=== PATIENT | male | born 2000 | race Caucasian/White ===

== ENCOUNTER 2024-12-20 08:51 | Outpatient (REF) | payer OTHER, SELFPAY ==
[2024-12-20 11:38] LABS: MANUAL DIFF FLAG NO
[2024-12-20 11:40] LABS: Hematocrit 44.1 % (42.0-52.0); Hemoglobin 14.9 g/dl (14.0-18.0); Imm Gran Abs Auto 0.01 X10*3/uL (0.00-0.03); Imm Gran Pct Auto 0.2 % (0.0-0.4); Lymphocytes Absolute Auto 1.0 X10*3/uL (1.2-4.9); Mean Corpuscular HGB Conc 33.8 g/dl (31.0-36.0); Mean Corpuscular Hemoglobin 29.0 pg (27.0-33.0); Mean Corpuscular Volume 86.0 fL (80.0-98.0); NRBC Abs Auto 0.000 X10*3/uL (0.0-0.012); NRBC Pct Auto 0.0 /100WBC (0.0-0.2); Platelet Count 334 X10*3/uL (160-400); Red Blood Count 5.13 X10*6/uL (4.60-5.80); White Blood Count 4.5 X10*3/uL (4.8-10.8)
[2024-12-20 12:03] LABS: Alanine Aminotransferase 43 U/L (0-40); Albumin Level 4.9 g/dL (3.5-5.0); Alkaline Phosphatase 65 U/L (39-117); Anion Gap 13 (12-20); Aspartate Amino Transferase 33 U/L (5-37); Blood Urea Nitrogen 12 mg/dL (9-16); Calcium 9.4 mg/dL (8.4-10.2); Carbon Dioxide 25 mmol/L (22-29); Chloride 106 mmol/L (96-108); Cholesterol 115 mg/dL (<200); Estimated Glomerular Filt Rate > 60; HDL Cholesterol 32 mg/dL (>40); Potassium 4.1 mmol/L (3.3-5.1); Sodium 140 mmol/L (135-145); Total Protein 8.0 g/dL (6.5-8.0); Triglycerides 173 mg/dL (<150)
[2024-12-20 12:10] LABS: Appearance Urine Clear; Glucose Urine UA Negative (Negative); PH 5.5 (5.0-9.0); Specific Gravity - Urine 1.020 (1.005-1.025)
[2024-12-20 12:12] LABS: Total Hemoglobin (HGBA1C) 3867.1429 umol/L
[2024-12-20 12:39] LABS: Microalbum/Creatinine Ratio Ur 3.2 ug/mg cr (<30)
== END 2024-12-20 08:52 | disposition home or self-care (01) ==
LOC: HO.WFDLDS 08:51
PROVIDERS: PCP Physician Assistant; Visit Provider Physician Assistant
DX: Z00.00 Encounter for general adult medical examination without abnormal findings (principal); M25.512 Pain in left shoulder; L40.9 Psoriasis, unspecified; R30.0 Dysuria; E66.01 Morbid (severe) obesity due to excess calories; R73.01 Impaired fasting glucose; F41.1 Generalized anxiety disorder; F41.0 Panic disorder [episodic paroxysmal anxiety]; F33.0 Major depressive disorder, recurrent, mild
CPT/HCPCS: 36415; 80053; 80061; 81003; 82043; 82570; 83036; 84443; 85025; 96127

== ENCOUNTER 2024-12-20 08:51 | Outpatient (AMB) | payer OTHER, SELFPAY ==
--- NOTE | 2024-12-20 08:56 | A.OFFPC_ITS ---
Vital Signs 12/20/24 08:58 Height 5 ft 4.17 in Weight 231 lb 4 oz BMI 39.5 BP 108/78 Blood Pressure Location Lt brachial Position Sitting Respiration 14 Pulse 72 Pulse Source Pulse Oximeter Temp 98.4 F Temp Source Oral Pulse Oximetry (%) 99 Oxygen Delivery Method Room Air Intake Visit Reasons: [employer]-annual pe/Psoriasis Intake Note: New patient visit Junior Underwriter Required: No Allergies No Known Allergies Allergy (Verified 12/20/24 09:16) Medication List - Last Reconciled 12/20/24 by Alexandrea Warren PA-C hydroxyzine HCl 25 mg PO BID PRN sertraline (Zoloft) 25 mg PO DAILY Tobacco use date assessed: 12/20/24 Dental Screening Dental Screen Date: 12/20/24 Did you have a dental visit in the last 12 months?: No Did you have a dental problem in the last 6 months where you did not have access to dental care?: No Was dental information given to patient?: Patient has dentist (has appt next month) HPI [employer]-annual pe/Psoriasis HPI Details Patient is a 24-year-old male who presents today to [facility]. He is transferring from pediatrics. He has a hx of psoriasis , anxiety and depression Derm: following with [facility] for psoriasis and is on topical management only and very responsive. Msk: he states that for years he has had left shoulder pain and states for the last 4 months he has persistent shoulder pain. He states it is worse with certain movements like heavy lift or twisting his arm in a weird way. He takes otc pain medications with slight improvement and he has tried massage therapy. He wants to see ortho. Psych: he has a longstanding hx of anxiety and depression. No SI/HI. He is getting intermittent panic attacks. He states that used to follow with a therapist as a child and did not find it that effective. Cannot recall any previous medications. He states he does not want to go to now wants to wait on it. Has a very supportive . Family history: mother had melanoma, maternal grandfather kidney cancer, maternal grandmother breast cancer [facility] Family History (Updated 12/20/24 @ 09:37 by Lynsey Scruggs CMA) Mother Diabetes Skin cancer Maternal Grandmother Breast cancer Maternal Grandfather Cancer of kidney Diabetes Paternal Grandfather Diabetes Other Anxiety Depression FHx: mental illness Substance abuse Social History Alcohol intake: never Patient Tobacco Use Status: Former Tobacco user Cigarette Packs Per Day: 0.5 Years Smoked: 5 e-Cigarette/Vaping Use: Currently Using Second Hand Smoke Exposure: Yes service: No Current occupational status: employed Current occupation: residential roofer for [employer] Current occupational exposures/hazards: No Cognitive needs: No Hearing needs: No Vision needs: No Questionnaire PHQ-9 Over the last 2 weeks, how often have you been bothered by any of the following problems? 1. Little interest or pleasure in doing things: several days 2. Feeling down, depressed, or hopeless: more than half the days 3. Trouble falling or staying asleep, or sleeping too much: nearly every day 4. Feeling tired or having little energy: more than half the days 5. Poor appetite or overeating: several days 6. Feeling bad about yourself - or that you are a failure or have let yourself or your family down: nearly every day 7. Trouble concentrating on things, such as reading the newspaper or watching television: several days 8. Moving or speaking so slowly that other people could have noticed. Or the opposite - being so fidgety or restless that you have been moving around a lot more than usual: several days 9. Thoughts that you would be better off or of hurting yourself in some way: not at all Total score: 14 Depression Screening Interpretation: Positive Depression Screening Follow-up: Existing condition, New Medication prescribed and Follow-up Visit Requested Depression Screening Done: Yes 51607 - PHQ-9 Billing: Yes Source: Developed by Drs. Fabricio Frazier, Jane Farris, Angus White and colleagues, with an educational eliezer from [employer]. Thrive Questionnaire Date Thrive assessed: 12/20/24 I am a: Patient What is your living situation today?: I have a steady place to live Within the past 12 months, did the food you bought not last and you didn't have the money to get more?: Never true Within the past 12 months, did you worry whether your food would run out before you got money to buy more?: Sometimes True Do you have trouble paying for medicines?: No Do you have trouble getting transportation to medical appointments?: No Do you have trouble paying your heating and electricity bill?: No Do you have trouble taking care of your child, family member or friend?: No Do you have trouble with day-to-day activities such as bathing, preparing meals, shopping, managing finances, etc.?: No Are you currently unemployed and looking for a job?: No Are you interested in more education?: No Please select the resources that you would like help with: None Currently or been in a relationship where the following occur: No concerns reported THRIVE Score: 1 AUDIT C Alcohol Use Questionnaire (AUDIT-C) 1. How often do you have a drink containing alcohol?: Never 3. How often do you have six or more drinks on one occasion?: Never Total Score: 0 Score Reviewed/Action Taken: Yes JANETTE-7 AMB Questionnaire JANETTE-7 Date JANETTE - 7 assessed: 12/20/24 Feeling nervous, anxious, or on edge: 3 = Nearly every day Not being able to stop or control worryin = Nearly every day Worrying too much about different things: 3 = Nearly every day Trouble relaxin = Nearly every day Being so restless that it is hard to sit still: 1 = Several days Becoming easily annoyed or irritable: 1 = Several days Feeling afraid as if something awful might happen: 3 = Nearly every day Total JANETTE-7 score (0-4 normal; 5-9 mild; 10-14 moderate; 15-21 severe): 17 Source: Developed by Drs. Fabricio Frazier, Jane Farris, Angus White and colleagues, with an educational eliezer from [employer]. JANETTE-7 Assessment Billing JANETTE-7 Assessment Tool: JANETTE-7 Assessment 46612 Physical exam (Primary Care) Vital Signs: Last Vital Signs Temp 98.4 F 12/20/24 08:58 Pulse 72 12/20/24 08:58 Resp 14 12/20/24 08:58 BP 108/78 12/20/24 08:58 Pulse Ox 99 12/20/24 08:58 Oxygen Delivery Method Room Air 12/20/24 08:58 BMI result Body Mass Index 39.5 Tobacco/Smoking Status: Tobacco use Status Tobacco use date assessed 12/20/24 12/20/24 09:02 Patient Tobacco Use Status Former Tobacco user 12/20/24 09:06 e-Cigarette/Vaping Use Currently Using 12/20/24 09:06 PHQ-9: PHQ-9 Score PHQ-9: Total score 14 12/20/24 09:06 Depression Screening Interpretation: Positive Depression Screening Follow-up: Existing condition, New Medication prescribed and Follow-up Visit Requested Thrive Assessment: Date of Thrive Assessment Date Thrive assessed 12/20/24 12/20/24 09:06 Currently or been in a relationship where the following occur: No concerns reported Const Orientation/consciousness: patient oriented x3 HENMT Ears: hearing grossly normal bilaterally Neck Thyroid: Thyroid normal Lymphatic: no lymphadenopathy noted Resp Auscultation: clear to auscultation bilaterally Cardio Rate: regular rate Rhythm: regular rhythm Heart sounds: S1 normal heart sound present and S2 normal heart sound present GI Inspection: Yes normal to inspection Palpation (GI): Soft to palpation and Other GI palpation findings present (nontender, no cva tenderness) Auscultation: normoactive bowel sounds Rectal Exam - Male: Yes deferred Skin General skin exam: no rashes or lesions noted Neuro General: patient oriented x3, gait normal and no focal motor deficits Coding Level of Care Code New Pt Level 4 (53658) Complex EM visit Add On G2211 Diagnoses Left shoulder pain M25.512 Psoriasis L40.9 Generalized anxiety disorder with panic attacks F41.1; F41.0 Mild recurrent major depression F33.0 Additional Codes JANETTE-7 Assessment Billing - JANETTE-7 Assessment Tool: JANETTE-7 Assessment 65578 ([id number]) PHQ-9 - 27195 - PHQ-9 Billing: Yes ([id number]) Assessment & Plan Assessment & Plan (1) Left shoulder pain: Code(s): M25.512 - Pain in left shoulder Category: Medical Plan: xr ordered referral to ortho (2) Psoriasis: Code(s): L40.9 - Psoriasis, unspecified Category: Medical Plan: following with [facility] (3) Generalized anxiety disorder with panic attacks: Code(s): F41.1 - Generalized anxiety disorder; F41.0 - Panic disorder [episodic paroxysmal anxiety] Category: Medical Plan: hydroxyzine prn. discussed risks and benefits and adverse effects (4) Mild recurrent major depression: Code(s): F33.0 - Major depressive disorder, recurrent, mild Category: Medical Plan: will start Zoloft. Discussed risks and benefits and effects of this medication. We will do a short term follow up. He will let me know if he changes his mind and a behavioral health risks Orders: Orders Lipid Panel Today E66.01 - Morbid (severe) obesity due to excess calories, L40.9 - Psoriasis, unspecified, M25.512 - Pain in left shoulder, Z00.00 - Encounter for general adult medical examination without abnormal findings TSH reflex Free T4 Today E66.01 - Morbid (severe) obesity due to excess calories, L40.9 - Psoriasis, unspecified, M25.512 - Pain in left shoulder, Z00.00 - Encounter for general adult medical examination without abnormal findings UA CC w/rflx Micro + Cult Today E66.01 - Morbid (severe) obesity due to excess calories, L40.9 - Psoriasis, unspecified, M25.512 - Pain in left shoulder, R30.0 - Dysuria, Z00.00 - Encounter for general adult medical examination without abnormal findings Complete Blood Count Auto Diff Today E66.01 - Morbid (severe) obesity due to excess calories, L40.9 - Psoriasis, unspecified, M25.512 - Pain in left shoulder, Z00.00 - Encounter for general adult medical examination without abnormal findings Comprehensive [facility]. Panel Fast Today E66.01 - Morbid (severe) obesity due to excess calories, L40.9 - Psoriasis, unspecified, M25.512 - Pain in left shoulder, Z00.00 - Encounter for general adult medical examination without abnormal findings Hemoglobin A1c Today E66.01 - Morbid (severe) obesity due to excess calories, L40.9 - Psoriasis, unspecified, M25.512 - Pain in left shoulder, R73.01 - Impaired fasting glucose, Z00.00 - Encounter for general adult medical examination without abnormal findings Microalbumin, Random (w Creat) Today E66.01 - Morbid (severe) obesity due to excess calories, L40.9 - Psoriasis, unspecified, M25.512 - Pain in left shou lder, Z00.00 - Encounter for general adult medical examination without abnormal findings XR shoulder LT min 2V Today M25.512 - Pain in left shoulder Referrals Orthopedics Referral M25.512 - Pain in left shoulder Medications: New hydroxyzine HCl 25 mg PO BID PRN 30 tabs 2RF anxiety sertraline (Zoloft) 25 mg PO DAILY 30 tabs 1RF
[2024-12-20 08:58] VITALS: BP 108/78; PULSE 72; RESP 14; TEMP 36.9; O2SAT 99; BMI 39.5
--- OUTSIDE RECORDS SUMMARY | 2024-12-20 10:09 | XMS_ITS | Clinical Summary ---
Author Organization [facility] Address [address] [place] [id number] Phone Care Team Providers Care Crime Lab Technician Name Role Phone Sofiya Underwood MD Primary Care Provider Unavailabl e Medications amphetamine-dextro amphetamine XR 30 MG 24 hr capsuleIndications :ADHD (attention deficit hyperactivity disorder), inattentive type Take 1 capsule (30 mg total) by mouth every morning Earliest Fill Date: 12/21/17. 30 capsule 8 Active Active Problems Problem Noted Date Diagnosed Date ADHD (attention deficit hype ractivity disorder), inattentive type 04/12/2017 Mild intermittent asthma with acute exacerbation 02/18/2016 Gastroesophageal reflux disease with esophagitis 11/10/2015 Immunizations Immunization Administration Dates Next Due DTaP 06/17/2003, 0,1998,06/23,1998 HPV Vaccine 9 Valent 03/24/2015 HPV, Quadrivalent 03/21/2014,03/12/2013 Hep A, Adult 04/12/2017 Hep B, ped/adol 1998,1998,1998 Hib (PRP-T) 06/18/1999, 9,1998,04/23 IPV 06/17/2003,199 9,1998,04/23 Influenza, injectable, quadrivalent 03/05,03/21/2014,03/12/2013,01/10,12/18/2009 Influenza, injectable, quadr ivalent, preservative free 04/12/2017,12/22/2010 MMR 04/20/2002,02/23/1999 Meningococcal Conj (Menactra) MCV4P 03/21/2014,0 12/18/2009 Pneumococcal Conjugate 03/04/2000,10/03/1999 Tdap 12/18/2009 Varicella 09/13/2007,02/23/1999 Family History Relation Name Status Comments Father Alive healthy, alcoho l abuse age: 45 Maternal Grandfather Alive ptsd di agnosed with NONPSYCHOT BRAIN SYN NOS Maternal Grandmother Alive seizure s Mother Alive hypothyroidism, melanoma 2015 - remission age: 31 diagnosed with MALIGNANT NEOPLASM NOS Other Alive Siblings: healt hy Social History Tobacco Use Types Packs/Day Years Used Date Smoking Tobacco: Never Assessed Sex and Gender Information Value Date Recorded Sex Assigned at Not on file Legal Sex Male 6:09 PM EDT Gender Identity Not on file Sexual Orientation Not on file Last Filed Vital Signs Vital Sign Reading Time Taken Comments Blood Pressure 118/68 04/12/2017 12:00 AM EST Pulse 88 02/18/2016 12:00 AM EST Temperature 36.2 C (97.2 F) 06/29/2016 12:00 AM EDT Respiratory Rate - - Oxygen Saturation 99% 02/18/2016 12:00 AM EST Inhaled Oxygen Concentration - - Weight 103 kg (227 lb 3.2 oz) 04/12/2017 12:00 A M EST Height 165.1 cm (5' 5 ) 04/12/2017 12:00 AM EST Body Mass Index 37.81 04/12/2017 12:00 AM EST Plan of Treatment Health Maintenance Due Date Last Done Comments DTaP,Tdap,and Td Vaccines (7 - Td or Tdap) 12/19/2019 12/18/2009, 06/17/2003, 06/08/1999, Additional history exists Influenza Vaccines (#1) 2024 04/12/19 18, 03/24/2015, 03/21/2014, Additional history exists COVID-19 Vaccine ( season) 2024 Hepatitis B Vaccines Completed 1998, 1998, 1998 HIB Vaccines Completed 06/18/1999, 08/02, 1998, Additional history exists Pneumococcal Vaccine Completed 03/04/2000, 10/03/19 00 MMR Vaccines Completed 04/20/2002, 02/23/1999 IPV Vaccines Completed 06/17/2003, 02/03, 1998, Additional history exists Varicella Vaccines Completed 09/13/2007, 02/23/1999 Meningococcal Vaccine Completed 03/21/2014, 010 HPV Vaccines Completed 03/24/2015, 03/04, 03/12/2013 Hepatitis A Vaccines Aged Out 04/12/2017 No long er eligible based on patient's age to complete this topic Men B Vaccine Aged Out No longer elig ible based on patient's age to complete this topic Insurance [facility] NON PCC Care Teams Crime Lab Technician Relationship Specialty Start Date End Date Sofiya Underwood MD PCP - General 09/20/19
--- OUTSIDE RECORDS SUMMARY | 2024-12-20 10:09 | XMS_ITS | Encounter Summary ---
Author Organization [facility] Address [address] [place] [id number] Phone Care Team Providers Care Director Of Neurology Name Role Phone Sofiya Underwood MD Primary Care Provider Unavailabl e Encounter Details Date Type Department Care Team (Late st Contact Info) Description 08/21/2017 Conversion [facility]counter [facility] [address] [address] Fabricio Catalan MD [address] [place] [id number] Social History Tobacco Use Types Packs/Day Years Used Date Smoking Tobacco: Never Assessed Sex and Gender Information Value Date Recorded Sex Assigned at Not on file Legal Sex Male 6:09 PM EDT Gender Identity Not on file Sexual Orientation Not on file documented as of this encounter Plan of Treatment Not on file documented as of this encounter Visit Diagnoses Not on filedocumented in this encounter Care Teams Director Of Neurology Relationship Specialty Start Date End Date Sofiya Underwood MD PCP - General 09/20/19 documented as of this encounter
== END 2024-12-20 09:30 | disposition home or self-care (01) ==
LOC: HO.HMCFM 08:52
PROVIDERS: PCP Physician Assistant; Visit Provider Physician Assistant
DX: M25.512 Pain in left shoulder (principal); L40.9 Psoriasis, unspecified; F41.1 Generalized anxiety disorder; F41.0 Panic disorder [episodic paroxysmal anxiety]; F33.0 Major depressive disorder, recurrent, mild

== ENCOUNTER 2025-02-13 10:41 | Outpatient (AMB) | payer OTHER, SELFPAY ==
--- NOTE | 2025-02-13 10:43 | A.OFFPC_ITS ---
Vital Signs 02/13/25 10:44 Height 5 ft 4.17 in Weight 230 lb BMI 39.3 BP 108/84 Blood Pressure Location Rt brachial Position Sitting Respiration 14 Pulse 76 Pulse Source Pulse Oximeter Temp 98 F Temp Source Oral Pulse Oximetry (%) 98 Oxygen Delivery Method Room Air Intake Visit Reasons: 4-6 weeks Intake Note: Follow up Burglary Investigator Required: No Allergies No Known Allergies Allergy (Verified 02/13/25 10:46) Medication List - Last Reconciled 02/13/25 by Alexandrea Warren PA-C hydroxyzine HCl 25 mg PO BID PRN sertraline (Zoloft) 25 mg PO DAILY Tobacco use date assessed: 02/13/25 Dental Screening Dental Screen Date: 12/20/24 HPI 4-6 weeks HPI Details Patient is a 24-year-old male who presents today for a follow up. He has a hx of psoriasis , anxiety and depression Derm: following with [facility] for psoriasis and is on topical management only and very responsive. Msk: he states that for years he has had left shoulder pain and states for the last 4 months he has persistent shoulder pain. He states it is worse with certain movements like heavy lift or twisting his arm in a weird way. He takes otc pain medications with slight improvement and he has tried massage therapy. He has not yet had imaging. He wants to see ortho booked 03.21. Psych: he has a longstanding hx of anxiety and depression. No SI/HI. Feeling a lot better with zoloft. Has rarely had to take hydroxyzine. GI: Had recent labs that showed mildly elevated LFTs. States that he did have the flu a couple of weeks prior to completing the labs and was eating a bit more carbs. He has been working hard on diet and weight loss. He used to weigh 280 lb earlier this year and states that with diet and exercise he has lost 50 lb. Dental: getting wisdom teeth out 03/22/25. Family history: mother had melanoma, maternal grandfather kidney cancer, maternal grandmother breast cancer PFSH Family History Mother Diabetes Skin cancer Maternal Grandmother Breast cancer Maternal Grandfather Cancer of kidney Diabetes Paternal Grandfather Diabetes Other Anxiety Depression FHx: mental illness Substance abuse Social History (Updated 11/12/25 @ 11:28 by LOREN Schwarz Housing: House Alcohol intake: never Patient Tobacco Use Status: Former Tobacco user Cigarette Packs Per Day: 0.5 Years Smoked: 5 e-Cigarette/Vaping Use: Currently Using Second Hand Smoke Exposure: Yes Use of substances other than those prescribed or required for medical reasons: No service: No Current occupational status: employed Current occupation: residential interior designer for [employer] Current occupational exposures/hazards: No Cognitive needs: No Hearing needs: No Vision needs: No Questionnaire Thrive Questionnaire Date Thrive assessed: 12/20/24 I am a: Patient What is your living situation today?: I have a steady place to live Within the past 12 months, did the food you bought not last and you didn't have the money to get more?: Never true Within the past 12 months, did you worry whether your food would run out before you got money to buy more?: Sometimes True Do you have trouble paying for medicines?: No Do you have trouble getting transportation to medical appointments?: No Do you have trouble paying your heating and electricity bill?: No Do you have trouble taking care of your child, family member or friend?: No Do you have trouble with day-to-day activities such as bathing, preparing meals, shopping, managing finances, etc.?: No Are you currently unemployed and looking for a job?: No Are you interested in more education?: No Please select the resources that you would like help with: None Currently or been in a relationship where the following occur: No concerns reported THRIVE Score: 1 AUDIT C Alcohol Use Questionnaire (AUDIT-C) 1. How often do you have a drink containing alcohol?: Never 3. How often do you have six or more drinks on one occasion?: Never Total Score: 0 JANETTE-7 AMB Questionnaire JANETTE-7 Date JANETTE - 7 assessed: 12/20/24 Source: Developed by Drs. Fabricio Frazier, Jane Farris, Angus White and colleagues, with an educational eliezer from [employer]. Physical exam (Primary Care) Vital Signs: Last Vital Signs Temp 98 F 02/13/25 10:44 Pulse 76 02/13/25 10:44 Resp 14 02/13/25 10:44 BP 108/84 02/13/25 10:44 Pulse Ox 98 02/13/25 10:44 Oxygen Delivery Method Room Air 11/12/25 10:44 BMI result Body Mass Index 39.3 Tobacco/Smoking Status: Tobacco use Status Tobacco use date assessed 02/13/25 02/13/25 10:49 Patient Tobacco Use Status Former Tobacco user 02/13/25 10:49 e-Cigarette/Vaping Use Currently Using 02/13/25 10:49 Thrive Assessment: Date of Thrive Assessment Date Thrive assessed 12/20/24 02/13/25 10:49 Currently or been in a relationship where the following occur: No concerns reported Const Orientation/consciousness: patient oriented x3 HENMT Ears: hearing grossly normal bilaterally Neck Thyroid: Thyroid normal Lymphatic: no lymphadenopathy noted Resp Auscultation: clear to auscultation bilaterally Cardio Rate: regular rate Rhythm: regular rhythm Heart sounds: S1 normal heart sound present and S2 normal heart sound present GI Inspection: Yes normal to inspection Palpation (GI): Soft to palpation and Other GI palpation findings present (nontender, no cva tenderness) Auscultation: normoactive bowel sounds Rectal Exam - Male: Yes deferred Skin General skin exam: no rashes or lesions noted Neuro General: patient oriented x3, gait normal and no focal motor deficits Coding Level of Care Code Est Pt Level 4 (85050) Complex EM visit Add On G2211 Diagnoses Left shoulder pain M25.512 Psoriasis L40.9 Generalized anxiety disorder with panic attacks F41.1; F41.0 Mild recurrent major depression F33.0 Elevated LFTs R79.89 Assessment & Plan Assessment & Plan (1) Left shoulder pain: Code(s): M25.512 - Pain in left shoulder Category: Medical Plan: Somewhat improving. Is seeing Orthopedics 03/21. Reminded to complete x-ray (2) Psoriasis: Code(s): L40.9 - Psoriasis, unspecified Category: Medical Plan: following with [facility] (3) Generalized anxiety disorder with panic attacks: Code(s): F41.1 - Generalized anxiety disorder; F41.0 - Panic disorder [episodic paroxysmal anxiety] Category: Medical Plan: hydroxyzine prn. discussed risks and benefits and adverse effects (4) Mild recurrent major depression: Code(s): F33.0 - Major depressive disorder, recurrent, mild Category: Medical Plan: Doing very well with Zoloft. Continue current regimen. (5) Elevated LFTs: Code(s): R79.89 - Other specified abnormal findings of blood chemistry Category: Medical Plan: We will monitor. He will recheck these today. Medications: Refilled sertraline (Zoloft) 25 mg PO DAILY 90 tabs 3RF
[2025-02-13 10:44] VITALS: BP 108/84; PULSE 76; RESP 14; TEMP 36.6; O2SAT 98; BMI 39.3
--- OUTSIDE RECORDS SUMMARY | 2025-02-13 12:52 | XMS_ITS | Encounter Summary ---
Author Organization [facility] Address [address] [place] [phone] Phone Care Team Providers Care Child Monitor Name Role Phone Sofiya Underwood MD Primary Care Provider Unavailabl e Encounter Details Date Type Department Care Team (Late st Contact Info) Description 08/21/2017 Conversion Encounter [facility] [address] [address] Fabricio Catalan MD [address] [place] [phone] Social History Tobacco Use Types Packs/Day Years [...] on filedocumented in this encounter Care Teams Child Monitor Relationship Specialty Start Date End Date Sofiya Underwood MD PCP - General 09/20/19 documented as of this encounter
--- OUTSIDE RECORDS SUMMARY | 2025-02-13 12:52 | XMS_ITS | Clinical Summary ---
Author Organization [facility] Address [address] [place] [phone] Phone Care Team Providers Care Agricultural Systems Specialist Name Role Phone Sofiya Underwood MD Primary [...] 03/21/2014, Additional history exists COVID-19 Vaccine ( - season) 2024 Hepatitis B Vaccines Completed 1998, [...] patient's age to complete this topic Insurance [facility] NON PCC Care Teams Agricultural Systems Specialist Relationship Specialty Start Date End Date Sofiya Underwood MD PCP - General 09/20/19
== END 2025-02-13 11:08 | disposition home or self-care (01) ==
LOC: HO.HMCFM 10:42
PROVIDERS: PCP Physician Assistant; Visit Provider Physician Assistant
DX: M25.512 Pain in left shoulder (principal); L40.9 Psoriasis, unspecified; F41.1 Generalized anxiety disorder; F41.0 Panic disorder [episodic paroxysmal anxiety]; F33.0 Major depressive disorder, recurrent, mild; R79.89 Other specified abnormal findings of blood chemistry

== ENCOUNTER 2025-03-21 08:21 | Outpatient (AMB) | payer OTHER, SELFPAY ==
--- NOTE | 2025-03-21 08:29 | A.OFFVIS_ITS ---
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 Patient was seen by PCP in December with complaints of persistent shoulder pain ongoing for the past 4 months. He was referred to orthopedics. Patient recently seen by PCP in February reports slight improvement in shoulder pain. 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 Complains of bilateral shoulder pain with the left shoulder being the worse. He noticed his shoulder pain after he switched careers. He complains of limited ROM and cracking/crunching sounds when rotating his shoulder. His pain presents with activity such as lifting. States at times he has to place his body against a wall to shift his shoulder back in place. No previous treatment. Allergies No Known Allergies Allergy (Verified 03/21/25 08:43) Medication List - Last Reconciled 03/21/25 by Clarissa Suh PA-C hydroxyzine HCl 25 mg PO BID PRN sertraline (Zoloft) 25 mg PO DAILY tapinarof 1% (Vtama) appl topical DAILY HPI Comments Details: History of Present Illness The patient is a 25 year old male presenting with left shoulder pain. The pain has been a significant issue for approximately six months. He experiences pain with physical activity, such as moving objects, pushing, pulling, or carrying items. The patient reports that the pain consistently disturbs his sleep, making it difficult to find a comfortable position and preventing him from lying on his left side. He experiences subjective weakness, reporting that he sometimes has to put objects down, but denies ever dropping anything due to instability. He reports very rare numbness and tingling down his arm into his hand upon waking, which he attributes to his sleeping position. His past history is significant for playing contact sports including football, baseball, and basketball, during which he sustained injuries involving falling on his shoulder or having his arm pulled, though he never sought hospital treatment. 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 - Level of Activity: He reports a history of playing contact sports such as football, baseball, and basketball. - Functional Status: His functional status is limited by left shoulder pain, which impacts sleep and his ability to perform activities involving pushing, pulling, or carrying objects. [facility] Surgical History (Updated 03/21/25 @ 08:37 by EMANUEL Zavala) History of gastric surgery Family History Mother Diabetes Skin cancer Maternal Grandmother Breast cancer Maternal Grandfather Cancer of kidney Diabetes Paternal Grandfather Diabetes Other Anxiety Depression FHx: mental illness Substance abuse Social History (Updated 03/21/25 @ 08:37 by EMANUEL Zavala) Housing: House Alcohol intake: never Patient Tobacco Use Status: Former Tobacco user Cigarette Packs Per Day: 0.5 Years Smoked: 5 e-Cigarette/Vaping Use: Currently Using Second Hand Smoke Exposure: Yes service: No Current occupational status: employed 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 - Reports subjective weakness in the left arm and audible crepitus with movement. - Reports pain in the back/scapular muscles during physical exam maneuvers. - Neurological: Reports very rare numbness and tingling down the left arm, usually upon waking. Physical Exam Exam Exam: Physical Exam - Musculoskeletal: On examination of the left shoulder, there is limited active forward flexion secondary to pain. - Tenderness to palpation is present along the parascapular region and anteriorly over the biceps tendon region. - There is no tenderness over the acromioclavicular joint. - Audible crepitus is noted with passive motion of the shoulder. - Special testing is positive for pain with [place]'s test and discomfort with resisted external rotation and a belly-press test. - The lift-off test is limited and painful. Vital Signs: BMI result Body Mass Index 39.5 Assessment & Plan Assessment & Plan (1) Left shoulder tendinitis: Code(s): M75.82 - Other shoulder lesions, left shoulder Category: Medical (2) Dyskinesis of left scapula: Code(s): M25.312 - Other instability, left shoulder Category: Medical Plan Plan 1. Left Shoulder Impingement Syndrome The patient's left shoulder pain is attributed to impingement syndrome with associated rotator cuff irritation and scapular muscle weakness. His history of contact sports and repetitive overhead work as a sushi chef are likely contributing factors. Exam findings support rotator cuff tendinopathy, which appears to be intact given his good strength despite pain. X-rays show no severe abnormalities, but an acromion shape that may predispose him to impingement. The plan is to start with a course of physical therapy for six to eight weeks. Therapy will focus on strengthening scapular stabilizers, improving mobility, and learning proper shoulder mechanics to reduce strain during activities. An MRI is not indicated at this time but will be considered if symptoms worsen or if there is no improvement with conservative management. The patient was instructed to follow up if he experiences increased pain, weakness, or instability. Patient was informed and verbally consented to the use of an ambient scribe for clinic note documentation during this visit. Orders: Orders PT Evaluation and Treatment Today M25.312 - Other instability, left shoulder, M75.82 - Other shoulder lesions, left shoulder XR shoulder LT min 2V Today M25.512 - Pain in left shoulder Coding Level of Care Code New Pt Level 3 (31676) Add On Problem Visit Only Diagnoses Left shoulder tendinitis M75.82 Dyskinesis of left scapula M25.312
[2025-03-21 08:31] VITALS: BMI 39.5
--- OUTSIDE RECORDS SUMMARY | 2025-03-21 08:39 | XMS_ITS | Encounter Summary ---
Author Organization [facility] Address [address] [place] [id number] Phone Care Team Providers Care Pot Fluxer Name Role Phone Sofiya Underwood MD Primary Care Provider Unavailabl e Encounter Details Date Type Department Care Team (Late st Contact Info) Description 08/21/2017 Conversion Encounter [facility] [address] [address] Fabricio Catalan MD [address] [place] [id number] Social History Tobacco Use Types Packs/Day Years [...] on filedocumented in this encounter Care Teams Pot Fluxer Relationship Specialty Start Date End Date Sofiya Underwood MD PCP - General 09/20/19 documented as of this encounter
--- OUTSIDE RECORDS SUMMARY | 2025-03-21 08:39 | XMS_ITS | Clinical Summary ---
Author Organization [facility] Address [address] [place] [phone] Phone Care Team Providers Care Hotel Receptionist Name Role Phone Sofiya Underwood MD Primary [...] patient's age to complete this topic Insurance [facility] NON PCC Care Teams Hotel Receptionist Relationship Specialty Start Date End Date Sofiya Underwood MD PCP - General 09/20/19
== END 2025-03-21 09:12 | disposition home or self-care (01) ==
LOC: HO.HOS 08:22
PROVIDERS: PCP Physician Assistant; Visit Provider Physician Assistant
DX: M75.82 Other shoulder lesions, left shoulder (principal); M25.312 Other instability, left shoulder
CPT/HCPCS: 99203; G2211

== ENCOUNTER 2025-03-21 08:21 | Outpatient (REF) | payer OTHER, SELFPAY ==
--- NOTE | ~2025-03-21 | XR_ITS ---
EXAMINATION: XR SHOULDER, LEFT CLINICAL INFORMATION: M25.512 - Pain in left shoulder COMPARISON: None available. TECHNIQUE: AP external rotation, Grashey, scapular Y, and axillary views of the left shoulder. FINDINGS: No acute cortical disruption or malalignment. No lytic or blastic lesions. No soft tissue calcifications. No metallic or radiopaque foreign body. No subcutaneous emphysema. XR/XR shoulder LT min 2V IMPRESSION: Normal left shoulder. Electronically signed by: Akbar Power MD 03/21/2025 08:35 AM [facility]
== END 2025-03-21 08:22 | disposition home or self-care (01) ==
LOC: HO.HOSX 08:21
PROVIDERS: PCP Physician Assistant; Visit Provider Physician Assistant
DX: M75.82 Other shoulder lesions, left shoulder (principal); M25.312 Other instability, left shoulder
CPT/HCPCS: 73030

== ENCOUNTER → 2025-03-21 08:28 | Outpatient (BNV) | payer OTHER, SELFPAY | PROVIDERS: PCP Physician Assistant; Visit Provider Radiology Diagnostic Radiology | DX: M25.512 Pain in left shoulder (principal) | CPT/HCPCS: 73030 ==